=== PATIENT | female | born 1955 | race Caucasian/White ===

== ENCOUNTER 2021-05-01 13:57 | Emergency (ER) | payer BC, OTHER ==
[~2021-05-01] VITALS: Ht 167.6 cm; Wt 61.2 kg
[2021-05-01 13:59] VITALS: BP 160/97
[2021-05-01] MEDS ORDERED: PERM60CR19 TP (14:27)
[2021-05-01] MEDS ORDERED: HYDR-3421 PO (14:27)
[2021-05-01] MEDS ORDERED: HYDROXYZINE 25 MG TABLET PO ONE (14:30)
[2021-05-01] MEDS ORDERED: METH4TAB3 PO (15:25)
[2021-05-01 15:45] VITALS: BP 145/80
== END 2021-05-01 15:49 | disposition home or self-care (01) ==
LOC: EDH 13:57
DX: L25.9 Unspecified contact dermatitis, unspecified cause (principal); E78.00 Pure hypercholesterolemia, unspecified; I10 Essential (primary) hypertension; Z88.0 Allergy status to penicillin; Z88.2 Allergy status to sulfonamides; Z79.899 Other long term (current) drug therapy